=== PATIENT | male | born 1975 | race Caucasian/White ===

== ENCOUNTER 2020-06-13 08:51 | Emergency (ER) | payer OTHER, SELFPAY ==
[2020-06-13 08:53] VITALS: BP 169/97; PULSE 70; RESP 17; TEMP 36.4; O2SAT 99; BMI 26.9
--- NOTE | 2020-06-13 09:01 | ED.VIS.UPPEX ---
History of Present Illness Chief Complaint: Upper Extremity Injury Informant: Patient Occurred: Days - 3 Mechanism/Context: Fall - onto outstretched hand after tripping going up a flight of steps Context: Sudden Onset Timing: Continuous Quality of Pain: Aching Location: left wrist Current Severity: Mild Maximum Severity: Moderate Worsened by: moving Relieved by: remaining still/velcro splint Associated Symptoms: Negative for: Parasthesia, Weakness, Loss of Funtion Narrative: [id number]. Injured his wrist, no other injuries. Past Medical History - Allergies and Home Meds Allergies/Adverse Reactions: Allergies No Known Allergies Allergy (Verified 06/13/20 08:53) Primary Care Physician: Care Physician,No Primary [Primary Care Provider] - Past Medical History: None Lives: With Family Review of Systems General: Denies: Chills, Fever, Sweats Musculoskeletal: Reports: Swelling - Focally left wrist, Extremity Pain Skin: Denies: Rash, Wounds Neurological: Denies: Headache, Weakness, Numbness Physical Exam Vital Signs/Narrative: Vital Signs Temp Pulse Resp BP Pulse Ox 06/13/20 08:53 97.5 F L 70 17 169/97 H 99 General: Well nourished, Well developed, - - Well-appearing no distress Head: Normocephalic, Atraumatic Extremeties: Left wrist is mostly tender ligamentous structures the joint space just distal to the distal radius, there is no bony tenderness that I can discern including the distal radius, distal ulna, scaphoid, metacarpals. Limited range of motion due to pain but he is able to flex and extend mildly. There is no warmth or signs of cellulitis. Mild swelling throughout the wrist. All FDS, FDP, extensor function intact throughout all digits. No tenderness/limitations at the elbow or shoulder. Skin: Normal color, No rash, No Trauma - Skin intact left upper extremity Neurological: Alert, Oriented x3, Cranial nerves II-XII grossly intact, Normal Strength, Normal Sensation, Normal Gait Psychological: Normal affect, Normal Mood Diagnostic/Tx/Re-eval Clinical Impression(s) from Imaging Studies Wrist X-Ray 06/13/20 10:40 IMPRESSION: Nondisplaced transverse fracture of the distal radial metaphysis with overlying soft tissue swelling. Electronically Signed: Iftikhar Barnes, at 11:04 EST , Service support , - Medical Decision Making X-rays confirm nondisplaced distal radius fracture. Scaphoid appears unaffected and he has no tenderness in the snuffbox or pain with axial loading of the thumb. He was splinted and will be sent to orthopedics to follow-up, he declined analgesics, advised to use Tylenol and avoid ibuprofen until he sees orthopedics. Procedures - Upper Extremity Splints Upper Extremity Splint: Orthoglass, - - Short arm AP splint. Neurovascularly intact distally after placement. Splint Fabrication: Fabricated Location: Left ED Disposition - Plan for ED Patient: Disposition: Home or Assisted Living Diagnosis: Nondisplaced fracture of distal end of left radius Instructions: ED Fx Colles Wrist No Redu Requ, ED Splint Care Fiberglass Referrals: Johnnie Clifford MD [STAFF PHYSICIAN] - 1-2 Weeks (call for appt)
--- NOTE | 2020-06-13 10:40 | RAD_ITS ---
STUDY: X-RAY - LEFT WRIST REASON FOR EXAM: Male, 44 years old. LEFT WRIST PAIN SINCE HE CAUGHT HIMSELF WHEN FALLING ON SATURDAY. -- DECREASED ROM AND EDEMA TECHNIQUE: 3 view(s) of the wrist were obtained. COMPARISON: None. FINDINGS: Nondisplaced transverse fracture of the distal radial metaphysis. Normal radiocarpal articulation. Normal distal radioulnar articulation. Normal carpal bones. Normal carpal articulations. Normal carpometacarpal articulation of the thumb. Normal second through fifth carpometacarpal articulations. Normal visualized metacarpal bones. Soft tissue swelling. RAD/Wrist min 3 Views IMPRESSION: Nondisplaced transverse fracture of the distal radial metaphysis with overlying soft tissue swelling. Electronically Signed: Iftikhar Barnes, at 11:04 EST , Service support ,
[2020-06-13 11:26] VITALS: PULSE 71; RESP 14; O2SAT 97
--- NOTE | 2020-06-13 11:28 | ED.RN ---
THIS NURSE REVIEWED D/C INSTRUCTIONS WITH PT. PT VERBALIZED UNDERSTANDING OF INSTRUCTIONS. PT DENIES FURTHER NEEDS OR QUESTIONS AT THIS TIME
== END 2020-06-13 11:28 | disposition home or self-care (01) ==
PROVIDERS: Emergency Provider Emergency Medicine
DX: S52.592A Other fractures of lower end of left radius, initial encounter for closed fracture (principal); W18.09XA Striking against other object with subsequent fall, initial encounter; Y93.01 Activity, walking, marching and hiking; Y92.008 Other place in unspecified non-institutional (private) residence as the place of occurrence of the external cause; Y99.8 Other external cause status
CPT/HCPCS: 29125; 73110; 99282